=== PATIENT | female | born 1955 | race American Indian/Alaskan Native ===

== ENCOUNTER 2018-06-05 11:19 | Emergency (ER) | payer MEDICAID ==
[2018-06-05 11:40] VITALS: BP 127/90; PULSE 92; RESP 20; TEMP 98.6; O2SAT 99
[2018-06-05] MEDS ORDERED: Bacitracin 500 Units/gm Oint Foilpak UD TOP STA (11:50)
[2018-06-05] MEDS ORDERED: Tetanus/Diphtheria Toxoids 0.5 ml Syringe IM ONE ×2 (11:51→11:56)
[2018-06-05] MEDS ORDERED: Bacitracin 500 Units/gm Oint Foilpak UD ONE (11:56)
--- NOTE | 2018-06-05 12:43 | RAD ---
Date of service: 06/05/2018 PROCEDURE: Radiographs of the right tibia and fibula. HISTORY: right leg injury r/o fx COMPARISON: None available TECHNIQUE: Frontal and lateral views obtained. FINDINGS: BONES: No fracture or destructive lesion. JOINT SPACES: Tibial femoral compartment narrowing. OTHER FINDINGS: Subcutaneous soft tissue prominence overlying the anterior distal lower extremity IMPRESSION: No acute fracture. Subcutaneous soft tissue prominence overlying the anterior distal lower extremity.
--- NOTE | 2018-06-05 12:59 | C.PDOC ---
History Of Present Illness 62 year old female presents to the ER with complaint of right lower leg pain and 2 wounds after she fell and hit her orellana on stairs. Patient denies other injuries or head injury, fever, bleeding, discharge. Time Seen by Provider: 06/05/18 11:38 Chief Complaint (Nursing): Lower Extremity Problem/Injury History Per: Patient History/Exam Limitations: no limitations Onset/Duration Of Symptoms: Days Current Symptoms Are (Timing): Still Present Recent travel outside of the [place]: No Past Medical History Reviewed: Historical Data, Nursing Documentation, Vital Signs Vital Signs: Last Vital Signs Temp 98.6 F 06/05/18 11:35 Pulse 92 H 06/05/18 11:35 Resp 20 06/05/18 11:35 BP 127/90 06/05/18 11:35 Pulse Ox 99 06/05/18 16:19 - Medical History PMH: Anxiety, Asthma, COPD, Depression Family History: States: No Known Family Hx - Social History Hx Alcohol Use: No Hx Substance Use: Yes - Immunization History Hx Tetanus Toxoid Vaccination: (unk) Hx Influenza Vaccination: Yes Hx Pneumococcal Vaccination: (unk) Review Of Systems Constitutional: Negative for: Fever, Chills Cardiovascular: Negative for: Chest Pain Respiratory: Negative for: Shortness of Breath Musculoskeletal: Positive for: Leg Pain Skin: Positive for: Other (Wounds) Neurological: Negative for: Weakness, Numbness Physical Exam - Physical Exam Appears: Well, Non-toxic, No Acute Distress, Other (speaking in complete sentences) Skin: Warm, Dry, Other (see extremity exam) Head: Atraumatic, Normacephalic Eye(s): bilateral: Normal Inspection Ear(s): Bilateral: Normal Nose: Normal, Other ( nasal cannula on oxygen) Oral Mucosa: Moist Cardiovascular: Rhythm Regular Respiratory: Normal Breath Sounds, No Rales, No Rhonchi, No Wheezing Extremity: Normal ROM (x4), No Calf Tenderness, Capillary Refill (< 2 sec all digits ), Other (Two 2cm skin avulsions on right lower leg, 6-7cm length of mild -moderate swelling in vertical orientation. No erythema, bleeding, or discharge. Right ankle and foot normal in appearance .) Pulses: Left Dorsalis Pedis: Normal, Right Dorsalis Pedis: Normal Neurological/Psych: Oriented x3, Normal Motor, Normal Sensation Gait: Steady ED Course And Treatment O2 Sat by Pulse Oximetry: 99 (Room air) Pulse Ox Interpretation: Normal - Other Rad Right tibia/fibula x-ray X-Ray: Viewed By Me, Read By Radiologist Interpretation: PROCEDURE: Radiographs of the right tibia and fibula. HISTORY : right leg injury r/o fx. COMPARISON: None available. TECHNIQUE: Frontal and lateral views obtained. FINDINGS: BONES: No fracture or destructive lesion. JOINT SPACES: Tibial femoral compartment narrowing. OTHER FINDINGS: Subcutaneous soft tissue prominence overlying the anterior distal lower extremity. IMPRESSION: No acute fracture. Subcutaneous soft tissue prominence overlying the anterior distal lower extremity. Progress Note: Xray of right tib/fib x-ray ordered - results negative for fracture. Tetanus vaccination and PO Keflex given in ED. Patient given Rxs for Keflex and Naprosyn. She was instructed to follow up with PMD in 1-2 days, and understands she should return to ED if symptoms worsen. Reevaluation Time: 12:50 Reassessment Condition: Improved Disposition Counseled Patient/Family Regarding: Studies Performed, Diagnosis, Need For Followup, Rx Given - Disposition Referrals: Eva oRbins MD [Non-Staff] - Disposition: HOME/ ROUTINE Disposition Time: 12:50 Condition: STABLE Additional Instructions: FOLLOW UP WITH YOUR DOCTOR IN 1-2 DAYS RETURN TO ER IF RIGHT LEG BECOMES MORE PAINFUL OR SWOLLEN, YOU HAVE FEVER, ETC USE MEDICATIONS DIRECTED Prescriptions: Cephalexin [Keflex] 500 mg PO BID #14 capsule Naproxen 375 mg PO BID PRN #20 tablet PRN Reason: pain Instructions: Contusion (DC), Skin Abrasions (DC) Forms: [employer] (Frisian) Print Language: [place] - POA Present On Arrival: Falls Or Trauma - Clinical Impression Clinical Impression: Hematoma of right lower extremity, Abrasion, Avulsion, skin - Scribe Statement The provider has reviewed the documentation as recorded by the Scribshanae Martinez All medical record entries made by the Sheriibshanae were at my direction and personally dictated by me. I have reviewed the chart and agree that the record accurately reflects my personal performance of the history, physical exam, medical decision making, and the department course for this patient. I have also personally directed, reviewed, and agree with the discharge instructions and disposition.
== END 2018-06-05 13:32 | disposition home or self-care (01) ==
LOC: C.ER 11:19
DX: S81.801A Unspecified open wound, right lower leg, initial encounter (principal); S80.11XA Contusion of right lower leg, initial encounter; W19.XXXA Unspecified fall, initial encounter